=== PATIENT | male | born 1995 | race Two or more races ===

== ENCOUNTER 2019-07-23 03:15 | Emergency (ER) | payer SELFPAY ==
[2019-07-23] MEDS ORDERED: METOCLOPRAMIDE HCL ORAL SOLN 10 MG/10 ML UDCUP PO ONE (03:55)
[2019-07-23] MEDS ORDERED: MAG HYDROX/AL HYDROX/SIMETH SUSP 30 ML UDCUP PO ONE (03:55)
[2019-07-23] MEDS ORDERED: LIDOCAINE 2% VISCOUS SOLN 20 ML UDCUP PO ONE (03:55)
[2019-07-23 04:21] LABS: ABSOLUTE LYMPHOCYTES (AUTO) 0.8 10^3/uL (0.5-4.7); ABSOLUTE MONOCYTES (AUTO) 0.7 10^3/uL (0.1-1.4); ABSOLUTE NEUT (AUTO) 14.4 10^3/uL (1.7-8.2); BASOPHILS % (AUTO) 0.2 % (0-2); HEMATOCRIT 52.7 % (37.9-51.0); HEMOGLOBIN 18.1 g/dL (13.5-17.0); LYMPHOCYTES % (AUTO) 5.1 % (13-45); MEAN CORPUSCULAR HGB CONC 34.3 g/dL (32.0-36.0); MEAN CORPUSCULAR VOLUME 90 fl (80-97); MONOCYTES % (AUTO) 4.7 % (3-13); PLATELET COUNT 365 10^3/uL (150-450); RED BLOOD COUNT 5.84 10^6/uL (4.35-5.55); RED CELL DISTRIBUTION WIDTH 13.8 % (11.5-14.0); TOTAL CELLS COUNTED % (AUTO) 100 %
[2019-07-23] MEDS ORDERED: FAMOTIDINE INJ/PF 20 MG/2 ML SDV IV ONE (04:27)
[2019-07-23] MEDS ORDERED: ONDANSETRON HCL INJ/PF 4 MG/2 ML SDV IV ONE (04:27)
[2019-07-23] MEDS ORDERED: NORMAL SALINE 1000 ML 1,000 ML IV ONE (04:28)
[2019-07-23 04:43] LABS: ALKALINE PHOSPHATASE 107 U/L (38-126); ASPARTATE AMINO TRANSFERASE 44 U/L (17-59); BILIRUBIN,DIRECT 0.2 mg/dL (0.0-0.4); BILIRUBIN,TOTAL 0.8 mg/dL (0.2-1.3); BLOOD UREA NITROGEN 37 mg/dL (7-20); CALCIUM 11.2 mg/dL (8.4-10.2); CHLORIDE 89 mmol/L (98-107); CREATINE KINASE 604 U/L (55-170); GLUCOSE 151 mg/dL (75-110); TOTAL PROTEIN 10.9 g/dL (6.3-8.2)
[2019-07-23 04:46] LABS: ALBUMIN > 6.0 g/dL (3.5-5.0)
[2019-07-23 04:48] LABS: CARBON DIOXIDE 26 mmol/L (22-30)
[2019-07-23 04:51] LABS: ANION GAP 24 (5-19)
[2019-07-23] MEDS ORDERED: RINGERS SOLUTION,LACTATED 2,000 ML IV ONE (04:57)
[2019-07-23] MEDS ORDERED: NORMAL SALINE 1000 ML 2,000 ML IV ONE (04:57)
--- NOTE | 2019-07-23 06:32 | ER Document Report ---
ED GI/ - General Chief Complaint: Epigastric Pain Stated Complaint: BODY CRAMP,CHEST PAIN Time Seen by Provider: 07/23/19 03:54 Notes: Patient is a 24-year-old male presents to the emergency department for concerns of dehydration. Patient voices he was out in the sun all day yesterday. States he did not eat or drink anything. States he complains of generalized body aches and muscle cramps. Patient is also had multiple episodes of vomiting. Patient's denying any fevers or diarrhea. Patient denies any medical problems. Denies any daily medications or allergies. TRAVEL OUTSIDE OF THE [place] IN LAST 30 DAYS: No - Related Data Allergies/Adverse Reactions: No Known Allergies Allergy (Verified 07/23/19 04:54) Past Medical History - General Information source: Patient - Social History Smoking Status: Unknown if Ever Smoked Family History: Reviewed & Not Pertinent Patient has suicidal ideation: No Patient has homicidal ideation: No Review of Systems - Review of Systems Constitutional: denies: Fever EENT: No symptoms reported Cardiovascular: See HPI Respiratory: No symptoms reported Gastrointestinal: See HPI Genitourinary: No symptoms reported Male Genitourinary: No symptoms reported Musculoskeletal: See HPI Skin: No symptoms reported Hematologic/Lymphatic: No symptoms reported Neurological/Psychological: Headaches Physical Exam - Vital signs Vitals: Temp Pulse Resp BP Pulse Ox 97.3 F 82 16 134/80 H 100 07/23/19 03:42 07/23/19 03:42 07/23/19 03:42 07/23/19 03:42 07/23/19 03:42 - Notes Notes: GENERAL: Alert, interacts well. Actively vomiting HEAD: Normocephalic, atraumatic. EYES: Pupils equal, round, and reactive to light. Extraocular movements intact. ENT: Oral mucosa dry, tongue midline. NECK: Full range of motion. Supple. Trachea midline. LUNGS: Clear to auscultation bilaterally, no wheezes, rales, or rhonchi. No respiratory distress. HEART: Regular rate and rhythm. No murmur ABDOMEN: Soft, non-tender. Non-distended. Bowel sounds present in all 4 quadrants. EXTREMITIES: Moves all 4 extremities spontaneously. No edema, normal radial and dorsalis pedis pulses bilaterally. No cyanosis. BACK: no cervical, thoracic, lumbar midline tenderness. No saddle anesthesia, normal distal neurovascular exam. No CVA tenderness noted bilaterally. NEUROLOGICAL: Alert and oriented x3. Normal speech. cranial nerves II through XII grossly intact PSYCH: Normal affect, normal mood. SKIN: Warm, dry, normal turgor. No rashes or lesions noted. Course - Re-evaluation Re-evalutation: Laboratory 07/23/19 07/23/19 04:11 04:11 WBC 16.0 H RBC 5.84 H Hgb 18.1 H Hct 52.7 H MCV 90 MCH 31.0 MCHC 34.3 RDW 13.8 Plt Count 365 Lymph % (Auto) 5.1 L Morris % (Auto) 4.7 Eos % (Auto) 0.0 Baso % (Auto) 0.2 Absolute Neuts (auto) 14.4 H Absolute Lymphs (auto) 0.8 Absolute Monos (auto) 0.7 Absolute Eos (auto) 0.0 Absolute Basos (auto) 0.0 Seg Neutrophils % 90.0 H Sodium 138.5 Potassium 5.0 Chloride 89 L Carbon Dioxide 26 Anion Gap 24 H BUN 37 H Creatinine 3.24 H Est GFR ( Amer) 28 L Est GFR (MDRD) Non-Af 23 L Glucose 151 H Calcium 11.2 H Total Bilirubin 0.8 Direct Bilirubin 0.2 Neonat Total Bilirubin Not Reportable Neonat Direct Bilirubin Not Reportable Neonat Indirect Bili Not Reportable AST 44 ALT 50 Alkaline Phosphatase 107 Creatine Kinase 604 H Total Protein 10.9 H Albumin > 6.0 H Lipase 50.1 Patients initial labs show a elevated creatinine, elevated CK, elevated hemoglobin and hematocrit. Based on patient's complaints of nausea vomiting extended sun exposure will treat for dehydration. Discussed this case with my attending Dr. Taylor who agrees administer the patient has total of 3 L fluid resuscitation and repeat CMP. After fluid resuscitation patient states he feels "so much better!" Patient has had no further episodes of vomiting. Currently awaiting repeat laboratory values. 07/23/19 07:47 Laboratory 07/23/19 07/23/19 07/23/19 04:11 04:11 06:23 WBC 16.0 H RBC 5.84 H Hgb 18.1 H Hct 52.7 H MCV 90 MCH 31.0 MCHC 34.3 RDW 13.8 Plt Count 365 Lymph % (Auto) 5.1 L Morris % (Auto) 4.7 Eos % (Auto) 0.0 Baso % (Auto) 0.2 Absolute Neuts (auto) 14.4 H Absolute Lymphs (auto) 0.8 Absolute Monos (auto) 0.7 Absolute Eos (auto) 0.0 Absolute Basos (auto) 0.0 Seg Neutrophils % 90.0 H Sodium 138.5 Potassium 5.0 Chloride 89 L Carbon Dioxide 26 Anion Gap 24 H BUN 37 H Creatinine 3.24 H Est GFR ( Amer) 28 L Est GFR (MDRD) Non-Af 23 L Glucose 151 H Calcium 11.2 H Total Bilirubin 0.8 Direct Bilirubin 0.2 Neonat Total Bilirubin Not Reportable Neonat Direct Bilirubin Not Reportable Neonat Indirect Bili Not Reportable AST 44 ALT 50 Alkaline Phosphatase 107 Creatine Kinase 604 H Total Protein 10.9 H Albumin > 6.0 H Lipase 50.1 Urine Color YELLOW Urine Appearance SLIGHTLY-CLOUDY Urine pH 6.0 Ur Specific [place] 1.010 Urine Protein NEGATIVE Urine Glucose (UA) NEGATIVE Urine Ketones NEGATIVE Urine Blood NEGATIVE Urine Nitrite NEGATIVE Urine Bilirubin NEGATIVE Urine Urobilinogen NEGATIVE Ur Leukocyte Esterase NEGATIVE Urine WBC (Auto) 2 Urine RBC (Auto) 1 U Hyaline Cast (Auto) 82 Urine Bacteria (Auto) TRACE Urine Mucus (Auto) FEW Urine Ascorbic Acid NEGATIVE 07/23/19 06:27 WBC RBC Hgb Hct MCV MCH MCHC RDW Plt Count Lymph % (Auto) Morris % (Auto) Eos % (Auto) Baso % (Auto) Absolute Neuts (auto) Absolute Lymphs (auto) Absolute Monos (auto) Absolute Eos (auto) Absolute Basos (auto) Seg Neutrophils % Sodium 138.3 Potassium 4.4 Chloride 101 Carbon Dioxide 27 Anion Gap 10 BUN 33 H Creatinine 1.90 H Est GFR ( Amer) 52 L Est GFR (MDRD) Non-Af 43 L Glucose 118 H Calcium 9.0 Total Bilirubin 0.5 Direct Bilirubin 0.1 Neonat Total Bilirubin Not Reportable Neonat Direct Bilirubin Not Reportable Neonat Indirect Bili Not Reportable AST 30 ALT 31 Alkaline Phosphatase 70 Creatine Kinase Total Protein 7.0 Albumin 4.3 Lipase Urine Color Urine Appearance Urine pH Ur Specific [place] Urine Protein Urine Glucose (UA) Urine Ketones Urine Blood Urine Nitrite Urine Bilirubin Urine Urobilinogen Ur Leukocyte Esterase Urine WBC (Auto) Urine RBC (Auto) U Hyaline Cast (Auto) Urine Bacteria (Auto) Urine Mucus (Auto) Urine Ascorbic Acid Patient's repeat labs are much improved. Discussed with patient importance of staying well-hydrated and following up with a primary care provider. Patient voices understanding, stable for discharge. Initial EKG, sinus rhythm rate of 86, QTc 474, no ST segment elevations noted, LVH. read by Dr. Taylor. Repeat EKG NSR rate 67, QTc 456, no ST segment elevations or depressions noted. Read by Dr. Garber. - Vital Signs Vital signs: Temp Pulse Resp BP Pulse Ox 97.3 F 82 13 112/74 100 07/23/19 03:42 07/23/19 03:42 07/23/19 07:01 07/23/19 07:01 07/23/19 07:01 - Laboratory Result Diagrams: 07/23/19 04:11 07/23/19 06:27 Laboratory results interpreted by me: 07/23/19 07/23/19 07/23/19 04:11 04:11 06:27 WBC 16.0 H RBC 5.84 H Hgb 18.1 H Hct 52.7 H Lymph % (Auto) 5.1 L Absolute Neuts (auto) 14.4 H Seg Neutrophils % 90.0 H Chloride 89 L Anion Gap 24 H BUN 37 H 33 H Creatinine 3.24 H 1.90 H Est GFR ( Amer) 28 L 52 L Est GFR (MDRD) Non-Af 23 L 43 L Glucose 151 H 118 H Calcium 11.2 H Creatine Kinase 604 H Total Protein 10.9 H Albumin > 6.0 H Discharge - Discharge Clinical Impression: Dehydration, Elevated serum creatinine Condition: Stable Disposition: HOME, SELF-CARE Instructions: Dehydration ([facility]) Additional Instructions: As we discussed you have been seen and treated in the emergency department for severe dehydration and vomiting. You should make sure you drink plenty of water, Gatorade, Pedialyte for the next 24 to 48 hours. He should follow-up with your primary care provider for repeat laboratory testing. Please return to the emergency room for any concerns. Forms: Return to Work
[2019-07-23 06:57] LABS: APPEARANCE,URINE SLIGHTLY-CLOUDY; BILIRUBIN,URINE NEGATIVE (NEGATIVE); COLOR,URINE YELLOW; GLUCOSE, URINE NEGATIVE (NEGATIVE); KETONES,URINE NEGATIVE (NEGATIVE); LEUKOCYTE ESTERASE,URINE NEGATIVE (NEGATIVE); NITRITE,URINE NEGATIVE (NEGATIVE); PROTEIN,URINE NEGATIVE (NEGATIVE); UROBILINOGEN,URINE NEGATIVE mg/dL (<2.0)
[2019-07-23 07:17] LABS: ALBUMIN 4.3 g/dL (3.5-5.0); ALKALINE PHOSPHATASE 70 U/L (38-126); ANION GAP 10 (5-19); ASPARTATE AMINO TRANSFERASE 30 U/L (17-59); BILIRUBIN,DIRECT 0.1 mg/dL (0.0-0.4); BILIRUBIN,TOTAL 0.5 mg/dL (0.2-1.3); BLOOD UREA NITROGEN 33 mg/dL (7-20); CARBON DIOXIDE 27 mmol/L (22-30); CHLORIDE 101 mmol/L (98-107); GLUCOSE 118 mg/dL (75-110); POTASSIUM 4.4 mmol/L (3.6-5.0)
[2019-07-23 08:03] VITALS: BP 123/72
--- NOTE | 2019-07-23 21:45 | EKG REPORT ---
SEVERITY:- ABNORMAL ECG - SINUS RHYTHM RIGHT ATRIAL ABNORMALITY ANTERIOR ST ELEVATION, PROBABLY DUE TO LVH BORDERLINE PROLONGED QT INTERVAL : Confirmed by: Harmony Dotson MD 23-Jul-2019 21:44:27
--- NOTE | 2019-07-23 21:45 | EKG REPORT ---
SEVERITY:- NORMAL ECG - SINUS RHYTHM : Confirmed by: Harmony Dotson MD 23-Jul-2019 21:44:21
== END 2019-07-23 08:35 | disposition home or self-care (01) ==
LOC: ER 03:15
DX: E86.0 Dehydration (principal); R74.9 Abnormal serum enzyme level, unspecified; R10.13 Epigastric pain; R07.9 Chest pain, unspecified
CPT/HCPCS: 93005; 36415; 82550; 83690; 85025; 87070; 80053; 81001; 93010; J3490; J2405; J7030; J7120; S0028